=== PATIENT | male | born 1975 | race Caucasian/White ===

== ENCOUNTER 2016-10-24 18:05 | Emergency (ER) | payer OTHER ==
--- NOTE | 2016-10-24 18:40 | EDM.PDOC ---
ED HPI GENERAL MEDICAL PROBLEM - General Chief Complaint: Upper Extremity Injury/Pain Stated Complaint: PT HURT RT HAND Time Seen by Provider: 10/24/16 18:05 Source of Information: Reports: Patient History Limitations: Reports: No Limitations - History of Present Illness INITIAL COMMENTS - FREE TEXT/NARRATIVE: History of present illness: [41-year-old male presenting with complaints of acute right hand pain. Patient she initially acknowledges that he did strike the wall and he has now think he has broken his hand.] Review of systems: As per history of present illness and below otherwise all systems reviewed and negative. Past medical history: As per history of present illness and as reviewed below otherwise noncontributory. Surgical history: As per history of present illness and as reviewed below otherwise noncontributory. Social history: No reported history of drug or alcohol abuse. Family history: As per history of present illness and as reviewed below otherwise noncontributory. Physical exam: HEENT: Atraumatic, normocephalic, pupils reactive, negative for conjunctival pallor or scleral icterus, mucous membranes moist, throat clear, neck supple, nontender, trachea midline. Lungs: Clear to auscultation, breath sounds equal bilaterally, chest nontender. Heart: S1S2, regular, negative for clicks, rubs, or JVD. Abdomen: Soft, nondistended, nontender. Negative for masses or hepatosplenomegaly. Negative for costovertebral tenderness. Pelvis: Stable nontender. Genitourinary: Deferred. Rectal: Deferred. Extremities: Right hand with significant amount of swelling on the dorsal aspect of the hand, as well as the fourth and fifth digits are samuel taped with electrical tape, and patient has pain with a grasping range of motion negative for cords or calf pain. Neurovascular unremarkable. Neuro: Awake, alert, oriented. Cranial nerves II through XII unremarkable. Cerebellum unremarkable. Motor and sensory unremarkable throughout. Exam nonfocal. While pending x-ray patient became more agitated and left AMA Diagnostics: [X-ray right hand] Therapeutics: [] Impression: [Contusion of right hand] Plan: [Since patient is without fracture and left AMA will allow him to follow-up as he chooses.] Definitive disposition and diagnosis as appropriate pending reevaluation and review of above. right hand Pain Score (Numeric/FACES): 5 - Related Data Allergies Allergy/AdvReac Type Severity Reaction Status Date / Time No Known Allergies Allergy Verified 10/24/16 18:18 Home Meds: Home Meds Pregabalin [Lyrica] mg PO BID 10/24/16 [History] Varenicline Tartrate [Chantix] 10/24/16 [History] oxyCODONE HCl/Acetaminophen [oxyCODONE-Acetaminophen 5-325] 1 tab PO Q4H PRN 08/07 [History] Past Medical History - Past Health History Medical/Surgical History: Denies Medical/Surgical History Other Neuro History: Neck injuries - Past Surgical History Other Neurological Surgeries/Procedures: "neck surgery" Social & Family History - Family History Family Medical History: Noncontributory - Tobacco Use Smoking Status *Q: Current Every Day Smoker Years of Tobacco use: 20 Packs/Tins Daily: 0.5 - Alcohol Use Days Per Week of Alcohol Use: 3 Number of Drinks Per Day: 3 Total Drinks Per Week: 9 - Recreational Drug Use Recreational Drug Use: No Drug Use in Last 12 Months: No Recreational Drug Type: Reports: Cocaine, Marijuana/Hashish Review of Systems - Review of Systems Review Of Systems: See Below (History of present illness) ED EXAM, GENERAL - Physical Exam Exam: See Below (See history of present illness) Course - Vital Signs Last Recorded V/S: Last Vital Signs Temp 36.9 C 10/24/16 18:20 Pulse 94 10/24/16 18:20 Resp 18 10/24/16 18:20 BP 181/101 H 10/24/16 18:20 Pulse Ox 98 10/24/16 18:20 - Orders/Labs/Meds Orders: Active Orders 24 hr Category Date Time Status Hand 2V Rt [CR] Stat Exams 10/24/16 18:16 Taken Departure - Departure Time of Disposition: 19:05 Disposition: Against Medical Advice 07 Condition: Good Clinical Impression: Hand pain, right - Discharge Information Forms: ED Department Discharge - My Orders Last 24 Hours: My Active Orders 10/24/16 18:16 Hand 2V Rt [CR] Stat - Assessment/Plan Last 24 Hours: My Active Orders 10/24/16 18:16 Hand 2V Rt [CR] Stat
[2016-10-24 19:30] VITALS: BP 140/80
--- NOTE | 2016-10-25 15:30 | CR ---
EXAM DATE: 10/24/16 PATIENT'S AGE: 41 Patient: KINA RAGLAND Facility: [place], [place] Site . Site : [id number] Study: XRay Extremity hand [id number]/4/2017 6:26:25 PM Ordering Physician: Doctor Holcomb Final Report: Right hand 2 VIEWS INDICATION: Injury. IMPRESSION: No visualized acute fracture. Alignments anatomic. Deformity of the 5th metacarpal is present which suggests a previous distal metacarpal fracture. Early degeneration with joint space narrowing of the radiocarpal space. The lateral view demonstrates corticated ossicle at the dorsum of the carpus. Most likely degenerative. Dictated by Mychal Abarca MD @ Oct 24 2016 6:53PM (Electronic Signature) Report Signed by Proxy. [place]
== END 2016-10-24 19:28 | disposition home or self-care (01) ==
LOC: MW.ED 18:05
DX: S60.221A Contusion of right hand, initial encounter (principal); F17.210 Nicotine dependence, cigarettes, uncomplicated; W22.8XXA Striking against or struck by other objects, initial encounter
CPT/HCPCS: 73120-26-RT; 73120-RT; 99282; 99283